=== PATIENT | female | born 2000 | race American Indian/Alaskan Native ===

== ENCOUNTER 2020-12-21 03:17 | Outpatient (CLI) | payer MEDICAID ==
[2020-12-21 04:02] VITALS: BP 101/65
[2020-12-21] MEDS ORDERED: LACTATED RINGERS 1,000 ML IV ONE (04:13)
[2020-12-21 04:36] LABS: Bacteria,Urine 4+ /HPF (Negative); Bilirubin,Urine NEG (Negative); Blood,Urine SM (Negative); Color,Urine Yellow (Yellow); Mucus,Urine FEW /HPF; Urobilinogen,Urine < 2.0 mg/dL (<2.0)
[2020-12-21 04:37] LABS: WBC,Urine > 182.0 /HPF (0.0-6.0)
[2020-12-21] MEDS ORDERED: FLUCONAZOLE 200 MG TAB PO ONE (06:08)
== END 2020-12-21 07:30 | disposition home or self-care (01) ==
LOC: TRG 03:17 → APU 03:20 → TRG 07:30
PROVIDERS: ATTEND Obstetrics & Gynecology
DX: O46.92 Antepartum hemorrhage, unspecified, second trimester (principal); O26.892 Other specified pregnancy related conditions, second trimester; R10.2 Pelvic and perineal pain; R10.30 Lower abdominal pain, unspecified; Z3A.21 21 weeks gestation of pregnancy
CPT/HCPCS: 59025; 81001; 96361; 96365; J0690; J7120; 96360

== ENCOUNTER 2021-03-25 14:15 | Outpatient (CLI) | payer MEDICAID ==
[2021-03-25] MEDS ORDERED: LACTATED RINGERS 1,000 ML IV ONE (16:51)
[2021-03-25 18:11] LABS: Hematocrit 25.4 % (30.3-42.9); Hemoglobin 8.3 gm/dl (10.1-14.3); Mean Corpuscular HGB Conc 33 % (30-34); Mean Corpuscular Volume 65 fl (79-97); Platelet Count 326 K/mm3 (140-440); Red Blood Count 3.93 M/mm3 (3.65-5.03)
[2021-03-25 18:14] LABS: Bilirubin,Urine NEG (Negative); Blood,Urine SM (Negative); Color,Urine Yellow (Yellow); Mucus,Urine FEW /HPF; Protein,Urine <15 mg/dL mg/dL (Negative); Urobilinogen,Urine < 2.0 mg/dL (<2.0)
[2021-03-25 18:21] LABS: Amphetamine Screen,Urine Negative; Benzodiazepines Screen,Urine Negative; Cannabinoid Screen,Urine Negative; Cocaine Screen,Urine Negative; Methadone Screen,Urine Negative; Opiate Screen,Urine Negative
[2021-03-25 19:01] VITALS: BP 116/72
--- NOTE | 2021-03-25 21:33 | Ultrasound Report ---
ULTRASOUND OBSTETRIC LIMITED INDICATION / CLINICAL INFORMATION: r/o abruption. Clinical Gestational Age (GA): EDC 03/31/2021 COMPARISON: 03/25/2021 FINDINGS: HEART RATE (beats per minute): 145 PRESENTATION: Cephalic. ADDITIONAL FINDINGS: Placenta is anterior and grade 1 and free of the os. No evidence of placental ab ruption. IMPRESSION: 1. No significant abnormality. Specifically, no evidence of placental abruption. Signer Name: Andrew Izaguirre MD Signed: 03/25/2021 9:29 PM Workstation Name: [id number]
--- NOTE | 2021-03-29 08:43 | Ultrasound Report ---
ULTRASOUND OBSTETRIC LIMITED ULTRASOUND BIOPHYSICAL PROFILE INDICATION / CLINICAL INFORMATION: vag bleeding. COMPARISON: None available. FINDINGS: BREATHING MOVEMENT = 2 GROSS BODY MOVEMENT = 2 TONE = 2 QUALITATIVE AMNIOTIC FLUID VOLUME = 2 TOTAL BIOPHYSICAL SCORE = 8/8 AMNIOTIC FLUID INDEX (cm) = 10.5 PRESENTATION: Cephalic. HEART RATE (beats per minute): 133 ADDITIONAL FINDINGS: None. IMPRESSION: 1. Biophysical Score = 8/8 Signer Name: Slim Ojeda MD Signed: 03/25/2021 4:48 PM Workstation Name: [email or web address]
== END 2021-03-25 20:17 | disposition home or self-care (01) ==
LOC: TRG 14:15 → APU 14:16 → TRG 20:17
PROVIDERS: ATTEND Obstetrics & Gynecology
DX: O46.93 Antepartum hemorrhage, unspecified, third trimester (principal); O47.1 False labor at or after 37 completed weeks of gestation; Z3A.39 39 weeks gestation of pregnancy
CPT/HCPCS: 36415; 59025; 76815; 76819; 80307; 81001; 85027; 96360; J7120

== ENCOUNTER 2021-04-07 16:28 | Outpatient (CLI) | payer MEDICAID ==
[2021-04-07] MEDS ORDERED: LACTATED RINGERS 1,000 ML IV SCH (16:45)
[2021-04-07 17:50] VITALS: BP 104/62
== END 2021-04-07 18:26 | disposition home or self-care (01) ==
LOC: TRG 16:28 → APU 16:31 → TRG 18:26
DX: Z34.93 Encounter for supervision of normal pregnancy, unspecified, third trimester (principal); Z3A.36 36 weeks gestation of pregnancy
CPT/HCPCS: 59025

== ENCOUNTER 2021-04-19 08:22 | Inpatient (IN) | payer MEDICAID ==
--- NOTE | 2021-04-19 09:19 | History and Physical Report ---
History of Present Illness Date of examination: 04/19/21 Date of admission: 04/19/21 Chief complaint: INDUCTION OF LABOR. History of present illness: Patient is a 20-year-old 9-year-old admitted from the community for possible small. Her problem list includes sickle cell trait 1 hour GTT was 140 on 3-hour GTT was normal. She does have a history of anemia hematocrit 27.7% forearms. She has recurrent UTIs with E. coli treated with Keflex. She also has a vitamin D deficiency treated with p.o. vitamin D. The patient has had greater than 12+ visit was recommended by a PA. She had induction of labor at 38 weeks for possible small gestational age fetus. Her GBS was just done is not known. Her blood type is O management was -27.7 VDRL nonreactive urine culture positive extreme HIV test was negative. 79 Chlamydia was negative gonorrhea trichomonas test was negative varicella was immune patient was negative 221 test was negative ultrasound was consistent with 7.410 station. Her EDC is 2020 VDRL strep test is negative noncontributory negative: 02/22/2021 no medical history is positive for diabetes genetic screen was on the list allergies none past medical there are age 13 social history patient is single No surgery Patient is admitted for induction of possible. Past History Past Surgical History: no surgical history Family/Genetic History: diabetes Social history: single - Obstetrical History : 2 Medications and Allergies Allergies Allergy/AdvReac Type Severity Reaction Status Date / Time No Known Allergies Allergy Verified 04/07/21 16:44 Home Medications Medication Instructions Recorded Confirmed Last Taken Type Cholecalciferol (Vitamin D3) 1 tab PO 1XW 07/20/18 03/03/21 1 Week Ago History [Vitamin D3] ~07/13/18 Ferrous Sulfate [Iron] 325 mg PO BID 07/20/18 03/03/21 1 Day Ago History ~07/19/18 Pnv,Calcium 72/Iron/Folic Acid 1 tab PO DAILY 07/20/18 03/03/21 1 Day Ago History [Pnv Plus Multivit Tab] ~07/19/18 Nitrofurantoin [place]/M-Cryst 100 mg PO Q12HR 7 Days #14 capsule 12/21/20 03/03/21 Unknown Rx [Macrobid CAP] Pnv No.153/FA/Om3/Dha/Epa/Fish 1 tab PO DAILY 03/03/21 03/03/21 Unknown History [Cvs Gummies] Pnv No.153/FA/Om3/Dha/Epa/Fish 1 tab PO DAILY 03/03/21 03/03/21 Unknown History [[facility]vs Gummies] Active Meds: Active Medications Dinoprostone (Dinoprostone 10 Mg Vag Supp) 10 mg VG ONCE ONE Stop: 04/19/21 09:09 Ephedrine Sulfate (Ephedrine Sulfate 50 Mg/1 Ml Inj) 10 mg IV Q2M PRN PRN Reason: Hypotension Oxytocin/Sodium Chloride (Pitocin/Ns 30 Unit/500ml) 30 units in 500 mls @ 2 mls/hr IV TITR BRANDY; Protocol Lactated Ringer's (Lactated Ringers) 1,000 mls @ 125 mls/hr IV DIRECT BRANDY Oxytocin/Sodium Chloride (Pitocin/Ns 30 Unit/500ml) 30 units in 500 mls @ 40 mls/hr IV TITR BRANDY; Protocol Ampicillin Sodium (Ampicillin/Ns 1 Gm/50 Ml) 1 gm in 50 mls @ 100 mls/hr IV Q4H BRANDY; Protocol Lidocaine (Lidocaine (2%) 20 Mg/1 Ml Vial 20 Ml Mdv) 20 ml INFILTRATI ONCE ONE Stop: 04/19/21 09:09 Mineral Oil (Mineral Oil 30 Ml Oral Liqd) 30 ml PO QHS PRN PRN Reason: Constipation Terbutaline Sulfate (Terbutaline 1 Mg/1 Ml Inj) 0.25 mg SUB-Q ONCE PRN PRN Reason: Hyperstimulation/Hypertonicity Review of Systems All systems: negative - Vital Signs Vital signs: Vital Signs Pulse BP 81 129/85 04/19/21 08:49 04/19/21 08:49 Temp Pulse Resp BP Pulse Ox 90 129/85 100 04/19/21 09:08 04/19/21 08:49 04/19/21 09:08 - Physical Exam Breasts: Cardiovascular: Regular rate, Normal S1, Normal S2 Lungs: Positive: Clear to auscultation Abdomen: Positive: normal appearance, soft, normal bowel sounds. Negative: distention, tenderness Genitourinary (Female): Positive: normal external genitalia Vulva: both: normal Vagina: Positive: normal moisture. Negative: discharge Cervix: Negative: lesion, discharge Uterus: Positive: normal size, normal contour Adnexa: both: normal Anus/Rectum: Positive: normal perianal skin, heme negative. Negative: rectal mass, hemorrhoids Extremities: Deep Tendon Reflex Grade: Normal +2 - Obstetrical FHR: category 1 Cervical Dilatation: 75 Results All other labs normal.
[2021-04-19] MEDS ORDERED: LIDOCAINE (2%) 20 MG/1 ML VIAL 20 ML MDV INFILTRATI SCH (09:30)
[2021-04-19] MEDS ORDERED: ePHEDrine SULFATE 50 MG/1 ML INJ IV PRN (09:30)
[2021-04-19] MEDS ORDERED: DINOPROSTONE 10 MG VAG SUPP VG SCH (09:30)
[2021-04-19] MEDS ORDERED: TERBUTALINE 1 MG/1 ML INJ SUB-Q PRN (09:30)
[2021-04-19] MEDS ORDERED: OXYTOCIN DRIP 30 UNITS/500 ML BAG IV SCH ×2 (10:00)
[2021-04-19] MEDS ORDERED: MINERAL OIL 30 ML ORAL LIQD PO PRN (10:00)
[2021-04-19] MEDS ORDERED: AMPICILLIN/NS 2 GM/100 ML 2 GM/100 ML BAG IV SCH (10:00)
[2021-04-19] MEDS ORDERED: LACTATED RINGERS 1,000 ML IV SCH (10:00)
[2021-04-19 10:09] LABS: Hematocrit 21.1 % (30.3-42.9); Hemoglobin 7.1 gm/dl (10.1-14.3); Mean Corpuscular HGB Conc 34 % (30-34); Platelet Count 243 K/mm3 (140-440); Red Blood Count 3.28 M/mm3 (3.65-5.03)
[2021-04-19 10:47] LABS: Mean Corpuscular Volume 64 fl (79-97); Red Cell Distribution Width 25.2 % (13.2-15.2)
[2021-04-19] MEDS ORDERED: AMPICILLIN/NS 1 GM/50 ML 1 GM/50 ML BAG IV SCH (14:00)
[2021-04-19] MEDS ORDERED: BUTORPHANOL 2 MG/1 ML INJ IV PRN (16:59)
[2021-04-19] MEDS ORDERED: WITCH HAZEL/ GLYCERIN PAD TP PRN (18:13)
[2021-04-19] MEDS ORDERED: MAGNESIUM HYDROXIDE (MOM) ORAL LIQD UDC PO PRN (18:13)
[2021-04-19] MEDS ORDERED: ONDANSETRON 4 MG/2 ML INJ IV PRN (18:13)
[2021-04-19] MEDS ORDERED: PROMETHAZINE 25 MG RECT SUPP PR PRN (18:13)
[2021-04-19] MEDS ORDERED: LANOLIN/ZINC/DIMETHICONE (LANSINOH) 7 GM TP PRN (18:13)
[2021-04-19] MEDS ORDERED: ACETAMINOPHEN 325 MG TAB PO PRN (18:13)
[2021-04-19] MEDS ORDERED: diphenhydrAMINE 25 MG CAP PO PRN (18:13)
[2021-04-19] MEDS ORDERED: HYDROcodone/ACETAMINOPHEN 5-325 MG TAB PO PRN (18:13)
[2021-04-19] MEDS ORDERED: PROMETHAZINE 25 MG TAB PO PRN (18:13)
--- NOTE | 2021-04-19 18:27 | Procedure Note ---
Date of procedure: 04/19/21 Pre-op diagnosis: 38 wk iup, POSSIBLE SGA FETUS Post-op diagnosis: same Procedure: Dr. BLEDSOE dictating procedure note: Patient. Patient delivery liveborn male infant weighing 6 pounds 6 ounces Apgars 8 and 9 placenta was delivered spontaneously. Estimated blood loss 250 cc. The patient did sustain a second-degree tear which was repaired with 2-0 Vicryl suture. The rectal mucosa was intact. Patient had minimal bleeding at the end of the procedure. Anesthesia: local Surgeon: ERIN BLEDSOE Estimated blood loss: other (250 CCS) Pathology: none Specimen disposition: to lab, discarded Condition: stable Disposition: observation
[2021-04-19] MEDS: IBUPROFEN 600 MG TAB PO SCH ×2 (19:39→23:16)
[2021-04-19] MEDS: DOCUSATE SODIUM 100 MG CAP PO SCH (23:15)
[2021-04-20] MEDS: IBUPROFEN 600 MG TAB PO SCH ×4 (05:43→17:56)
[2021-04-20 08:34] LABS: Hematocrit 18.7 % (30.3-42.9)
--- NOTE | 2021-04-20 11:03 | Progress Note ---
Assessment and Plan A: PP Day #1 Severe Anemia P: Follow Routine Orders Consulted Dr. Molina: Recommends 2 Units of PRBCs Subjective - Subjective Date of service: 04/20/21 Patient reports: appetite normal, voiding normally, pain well controlled, flatus, ambulating normally, other (Request Blood Transfusion) [place]: doing well, bottle feeding Objective - Vital Signs Latest vital signs: Vital Signs Temp Pulse Resp BP BP Pulse Ox 04/20/21 08:10 98.2 F 103 H 18 111/67 99 04/20/21 05:17 98.6 F 78 20 106/69 98 04/20/21 00:59 98.7 F 82 18 105/70 98 04/19/21 20:35 98.4 F 74 18 118/83 99 04/19/21 20:01 81 121/87 04/19/21 19:46 67 123/87 04/19/21 19:42 97.8 F 71 16 124/86 124/86 04/19/21 19:13 76 94 04/19/21 19:09 67 100 04/19/21 19:04 70 100 04/19/21 19:01 133/88 04/19/21 18:59 87 97 04/19/21 18:54 88 99 04/19/21 18:49 85 100 04/19/21 18:44 73 100 04/19/21 18:39 53 L 100 04/19/21 18:38 98.8 F 16 04/19/21 18:34 59 L 100 04/19/21 18:31 61 128/86 04/19/21 18:29 62 100 04/19/21 18:24 72 100 04/19/21 18:19 79 100 04/19/21 18:16 75 135/79 04/19/21 18:14 77 98 04/19/21 18:09 95 H 99 04/19/21 18:04 72 114/70 100 04/19/21 18:00 88 04/19/21 17:56 68 131/65 04/19/21 17:50 62 L 04/19/21 17:47 76 84 04/19/21 17:45 76 91 04/19/21 17:37 71 99 04/19/21 17:32 76 99 04/19/21 17:29 73 93 04/19/21 17:27 100 04/19/21 17:23 46 L 80 L 04/19/21 17:21 95 H 99 04/19/21 17:16 99 H 100 04/19/21 17:11 68 100 04/19/21 17:06 68 99 04/19/21 17:01 85 100 04/19/21 16:59 88 04/19/21 16:51 113 H 99 04/19/21 16:50 93 04/19/21 16:46 100 H 100 04/19/21 16:41 106 H 99 04/19/21 16:40 57 L 91 04/19/21 16:33 88 04/19/21 16:27 87 04/19/21 15:52 47 L 0 L 04/19/21 15:39 40 L 85 04/19/21 15:32 71 92 04/19/21 15:30 70 82 L 04/19/21 15:27 66 100 04/19/21 15:25 81 84 04/19/21 15:22 71 100 04/19/21 15:17 66 92 04/19/21 15:11 81 87 04/19/21 15:10 77 100 04/19/21 15:05 73 100 04/19/21 15:01 92 H 91 04/19/21 15:00 89 95 04/19/21 14:55 72 100 04/19/21 14:50 83 100 04/19/21 14:45 71 100 04/19/21 14:40 82 100 04/19/21 14:35 71 100 04/19/21 14:30 81 100 04/19/21 14:25 72 100 04/19/21 14:20 68 100 04/19/21 14:16 71 89 04/19/21 14:15 70 97 04/19/21 14:07 82 99 04/19/21 14:02 69 99 04/19/21 13:57 65 99 04/19/21 13:52 63 99 04/19/21 13:47 74 99 04/19/21 13:42 68 99 04/19/21 13:37 72 91 04/19/21 13:35 73 93 04/19/21 13:32 78 100 04/19/21 13:29 79 93 04/19/21 13:27 61 99 04/19/21 13:22 74 100 04/19/21 13:17 77 95 04/19/21 13:12 76 100 04/19/21 13:07 73 100 04/19/21 13:04 79 92 04/19/21 13:02 76 100 04/19/21 12:57 58 L 83 L 04/19/21 12:48 87 100 04/19/21 12:43 77 100 04/19/21 12:38 74 100 04/19/21 12:33 64 100 04/19/21 12:28 79 100 04/19/21 12:23 66 100 04/19/21 12:18 73 100 04/19/21 12:13 85 100 04/19/21 12:08 71 99 04/19/21 12:03 86 100 04/19/21 11:58 80 100 04/19/21 11:53 116 H 99 04/19/21 11:48 91 H 100 04/19/21 11:43 73 100 04/19/21 11:38 75 100 04/19/21 11:33 72 100 04/19/21 11:28 74 100 04/19/21 11:23 74 100 04/19/21 11:19 83 88 04/19/21 11:18 78 100 04/19/21 11:13 83 93 04/19/21 11:12 89 91 04/19/21 11:08 73 100 04/19/21 11:03 72 100 Intake and Output 04/19/21 04/20/21 04/20/21 22:59 06:59 14:59 Intake Total 600 Output Total 1400 800 Balance -1400 -200 Intake: Oral 240 Intake, Free Water 360 Output: Urine 1400 800 Void 1400 800 Other: Total, Intake Amount 240 Total, Output Amount 800 300 # Voids Void 1 1 Estimated Blood Loss 200 - Exam Breasts: Present: normal Cardiovascular: Present: Regular rate Lungs: Present: Clear to auscultation, Normal air movement Abdomen: Present: normal appearance, soft, normal bowel sounds Uterus: Present: normal, firm, fundal height below umbilicus Extremities: Present: normal - Labs Labs: Abnormal lab results 04/20/21 Range/Units 08:12 Hgb 6.0 L (10.1-14.3) gm/dl Hct 18.7 L* (30.3-42.9) %
[2021-04-20] MEDS ORDERED: SODIUM CHLORIDE 0.9% 500 ML 500 ML ONE (11:16)
[2021-04-20] MEDS: DOCUSATE SODIUM 100 MG CAP PO SCH (11:31)
[2021-04-20] MEDS: PRENATAL VIT27-FE FUMARATE-FOLIC ACID VIT TAB PO SCH (11:31)
[2021-04-20] MEDS ORDERED: SODIUM CHLORIDE 0.9% 500 ML 500 ML IV SCH (12:00)
[2021-04-20] MEDS ORDERED: BENZOCAINE/MENTHOL 20/0.5% TOP SPRAY 56 GM TP PRN (18:08)
[2021-04-20 21:02] LABS: Hematocrit 27.4 % (30.3-42.9)
[2021-04-21] MEDS: IBUPROFEN 600 MG TAB PO SCH ×4 (00:16→17:48)
[2021-04-21] MEDS: DOCUSATE SODIUM 100 MG CAP PO SCH ×2 (00:16→10:49)
[2021-04-21] MEDS: FERROUS SULFATE 325 MG TAB PO SCH (10:49)
[2021-04-21] MEDS: PRENATAL VIT27-FE FUMARATE-FOLIC ACID VIT TAB PO SCH (10:49)
--- NOTE | 2021-04-21 22:42 | Progress Note ---
Assessment and Plan A: S/P S/P symptomatic Anemia p: Continue routine pp care Cont Fe as prescribed Advised foods high in Fe D/c home tomm if stable Subjective - Subjective Date of service: 04/21/21 Principal diagnosis: s/p Patient reports: appetite normal, voiding normally, pain well controlled, ambulating normally, other (Denies dizzines sob, or weakness) : doing well, bottle feeding Objective - Vital Signs Latest vital signs: Vital Signs Temp Pulse Resp BP Pulse Ox 04/21/21 16:23 98.2 F 62 20 120/84 99 04/21/21 07:28 98.3 F 58 L 18 113/74 99 04/21/21 00:59 98.5 F 76 16 111/76 98 Intake and Output 04/21/21 04/21/21 04/21/21 06:59 14:59 22:59 Intake Total 480 540 Balance 480 540 Intake: Oral 240 Intake, Free Water 480 300 Other: Total, Intake Amount 240 # Voids Void 2 1 1 - Exam Breasts: Present: normal Abdomen: Present: normal appearance, normal bowel sounds Vulva: both: normal Uterus: Present: normal, firm, fundal height below umbilicus Extremities: Present: normal Incision: Present: normal, intact
[2021-04-22] MEDS: DOCUSATE SODIUM 100 MG CAP PO SCH ×2 (00:30→10:36)
[2021-04-22] MEDS: IBUPROFEN 600 MG TAB PO SCH ×2 (00:30→02:00)
[2021-04-22] MEDS: FERROUS SULFATE 325 MG TAB PO SCH ×2 (00:31→10:36)
[2021-04-22] MEDS: PRENATAL VIT27-FE FUMARATE-FOLIC ACID VIT TAB PO SCH (10:37)
--- NOTE | 2021-04-22 12:32 | Progress Note ---
Assessment and Plan A: day 3 S/P . Anemia, S/P blood transfusion; now on oral iron supplementation. P: Discharge patient home today. Discussed with patient discharge instructions and warning signs. Advised patient to continue taking her vitamin and iron supplements at home. Advised patient to avoid intercourse, lifting, and heavy housework. Advised patient to follow up at [facility] office in 2 weeks. Patient voiced understanding of all instructions. Subjective - Subjective Date of service: 04/22/21 Principal diagnosis: day 3 S/P Interval history: S/P blood transfusion for severe anemia; now on oral iron supplementation. Hemoglobin 9.0; hematocrit 27.4. Patient is asymptomatic and desires discharge home today. Patient reports: appetite normal, voiding normally, pain well controlled, flatus, ambulating normally, no dizzy ambulation, no nauseated : doing well Objective - Vital Signs Latest vital signs: Vital Signs Temp Pulse Resp BP BP Pulse Ox 04/22/21 07:34 98.7 F 50 L 18 125/88 99 04/22/21 00:00 98.6 F 69 16 115/78 04/21/21 16:23 98.2 F 62 20 120/84 99 Intake and Output 04/21/21 04/22/21 04/22/21 23:59 07:59 15:59 Intake Total 540 400 120 Balance 540 400 120 Intake: Oral 240 400 120 Intake, Free Water 300 Other: Total, Intake Amount 240 200 120 # Voids Void 1 1 1 - Exam Cardiovascular: Present: Regular rate Lungs: Present: Clear to auscultation Abdomen: Present: normal appearance, soft. Absent: distention, tenderness, guarding, rigidity Uterus: Present: normal, firm, fundal height below umbilicus. Absent: bogginess, tenderness Extremities: Present: normal. Absent: tenderness, edema
--- NOTE | 2021-04-22 12:36 | Discharge Summary ---
Providers - Providers Date of Admission: 04/19/21 08:23 Date of discharge: 04/22/21 Attending physician: ERIN BLEDSOE MD Primary care physician: ERIN BLEDSOE MD Hospitalization Reason for admission: induction of labor Delivery: Other procedures: none complications: other (severe anemia requiring blood transfusion) Discharge diagnosis: IUP at term delivered baby: male Pertinent studies: Labs Hospital course: Stable hospital course Condition at discharge: Good Disposition: DC-01 TO HOME OR SELFCARE - Discharge Diagnoses (1) Term delivered Status: Acute (2) Anemia Status: Acute Plan - Provider Discharge Summary Activity: routine, no sex for 6 weeks, no heavy lifting 4 weeks, no strenuous exercise Diet: routine Instructions: routine Additional instructions: Continue taking your vitamin and iron supplements at home. Follow up at [facility] in 2 weeks. Call your doctor immediately for: * Fever > 100.5 * Heavy vaginal bleeding ( >1 pad per hour) * Severe persistent headache * Shortness of breath * Reddened, hot, painful area to leg or breast - Follow up plan Follow up: ERIN BLEDSOE MD [Primary Care Provider] - 14 Days Forms: [facility] Discharge Summary
[2021-04-22 12:58] VITALS: BP 106/73
== END 2021-04-22 14:13 | disposition home or self-care (01) | DRG 775 ==
LOC: TRG 08:22 → LD 08:23 → TRG 18:13 → OB 20:54
PROC: 10E0XZZ Delivery of Products of Conception, External Approach (ICD-10-PCS; principal; 2021-04-20)
PROC: 30233N1 Transfusion of Nonautologous Red Blood Cells into Peripheral Vein, Percutaneous Approach (ICD-10-PCS; 2021-04-20)
PROC: 0KQM0ZZ Repair Perineum Muscle, Open Approach (ICD-10-PCS; 2021-04-20)
DX: O99.02 Anemia complicating childbirth (principal); Z3A.00 Weeks of gestation of pregnancy not specified; Z37.0 Single live birth; D64.9 Anemia, unspecified; Z20.822 Contact with and (suspected) exposure to COVID-19; O70.1 Second degree perineal laceration during delivery
CPT/HCPCS: 36415; 59200; 85014; 85018; 85027; 86850; 86900; 86901; 86920; G0378; J0290; J7040; J7120; P9016; U0003

== ENCOUNTER 2022-08-08 20:38 | Outpatient (CLI) | payer MEDICAID ==
[2022-08-08] MEDS: ACETAMINOPHEN 500 MG TAB PO ONE (22:57)
--- NOTE | 2022-08-09 00:22 | Ultrasound Report ---
ULTRASOUND OBSTETRIC INDICATION / CLINICAL INFORMATION: GESTATIONAL AGE, EFW, DANIELITO, AND CERVICAL LENGTH. - Clinical Gestational Age (GA) in weeks, days: Not given TECHNIQUE: Transabdominal. COMPARISON: None available. FINDINGS: Single intrauterine . Biparietal Diameter = 4.9 cm = 20, 6 weeks, days Head Circumference = 18.4 cm = 20, 6 weeks, days Abdominal Circumference = 15.7 cm = 20, 6 weeks, days Femur Length = 3.3 cm = 20, 2 weeks, days Average Ultrasound Age (AUA) = 20, 5 weeks, days Heart Rate: 166 beats per minute. Estimated Weight in grams (if calculated): 368 Estimated Weight Growth Percentile (if calculated): Position: cephalic. Cervix: closed. Length in cm (if measured): 4.8 cm Placenta: anterior and free of the os. Amniotic Fluid Volume: normal Maternal Adnexa: No significant abnormality. IMPRESSION: 1. Single, living intrauterine with estimated sonographic age of 20, 5 weeks, days. 2. No significant sonographic abnormality. Signer Name: Marques Garcia MD Signed: 08/09/2022 12:18 AM Workstation Name: [email or web address]
[2022-08-09 00:34] VITALS: BP 98/52
== END 2022-08-09 01:30 | disposition home or self-care (01) ==
LOC: TRG 20:38 → APU 20:44 → TRG 08-09 01:30
PROVIDERS: ATTEND Obstetrics & Gynecology Gynecology
DX: Z34.91 Encounter for supervision of normal pregnancy, unspecified, first trimester (principal); Z3A.20 20 weeks gestation of pregnancy
CPT/HCPCS: 59025; 76816